=== PATIENT | female | born 1985 | race Caucasian/White ===

== ENCOUNTER 2017-10-12 03:04 | Emergency (ER) | payer MEDICAID ==
[2017-10-12 04:55] LABS: UA SPECIFIC GRAVITY 1.025 (1.005-1.035); microscopic required? YES; urine erythrocyte 1+ (NEGATIVE)
[2017-10-12 06:37] VITALS: BP 116/66
== END 2017-10-12 06:37 | disposition home or self-care (01) ==
LOC: ED 03:04
DX: O23.40 Unspecified infection of urinary tract in pregnancy, unspecified trimester (principal); Z3A.00 Weeks of gestation of pregnancy not specified; Z87.42 Personal history of other diseases of the female genital tract

== ENCOUNTER 2017-10-20 02:01 | Emergency (ER) | payer MEDICAID ==
[~2017-10-20] VITALS: Ht 182.9 cm; Wt 136.5 kg
[2017-10-20 02:15] VITALS: Ht 182.9 cm; Wt 136.5 kg
[2017-10-20 03:58] LABS: CALCIUM 8.5 mg/dL (8.5-10.1); CHLORIDE SERUM 105 mmol/L (98-107); CREATININE SERUM 0.7 mg/dL (0.6-1.0); GFR1 > 60 mL/min; GLUCOSE SERUM 97 mg/dL (74-106); POTASSIUM SERUM 4.1 mmol/L (3.5-5.1); SODIUM SERUM 138 mmol/L (136-145)
[2017-10-20 04:03] LABS: ALKALINE PHOSPHATASE 54 U/L (46-116); ALT/SGPT 21 U/L (14-59); AST/SGOT 17 U/L (15-37); BILIRUBIN TOTAL 0.15 mg/dL (0.20-1.00); TOTAL PROTEIN, SERUM 6.6 g/dL (6.4-8.2)
[2017-10-20 04:19] LABS: microscopic required? YES; urine erythrocyte TRACE (NEGATIVE)
[2017-10-20 04:25] LABS: BASOPHIL % 0.4 % (0-2); PLATELET COUNT 269 x10^3mcL (130-400)
[2017-10-20 06:35] VITALS: BP 99/68
== END 2017-10-20 06:35 | disposition home or self-care (01) ==
LOC: ED 02:01
PROVIDERS: Emergency Medicine
DX: O21.9 Vomiting of pregnancy, unspecified (principal); R19.7 Diarrhea, unspecified; Z3A.01 Less than 8 weeks gestation of pregnancy; Z88.1 Allergy status to other antibiotic agents
CPT/HCPCS: J2765; J7030